=== PATIENT | male | born 2000 | race African-American/Black ===

== ENCOUNTER 2019-07-04 11:59 | Emergency (ER) | payer BC, OTHER ==
[~2019-07-04] VITALS: Ht 167.6 cm; Wt 65.0 kg
[~2019-07-04 11:59] MED LIST: ACET325T33 PO; AMOX500C2 PO; BEN25 PO; CEPH-443 PO; EPIN0.3P4 INJ; IBUP-1542 PO; IBUP800T48 PO; MED4DP PO; PRED20TA PO
[2019-07-04 12:01] VITALS: BP 134/71; PULSE 106; RESP 24; Ht 167.6 cm; Wt 65.0 kg
== END 2019-07-04 14:01 | disposition home or self-care (01) ==
LOC: FTE 11:59
DX: T63.441A Toxic effect of venom of bees, accidental (unintentional), initial encounter (principal); R50.9 Fever, unspecified; Y92.9 Unspecified place or not applicable
CPT/HCPCS: 83605; 85025; Z7502; Z7610; 99283

== ENCOUNTER 2019-07-05 15:28 | Emergency (ER) | payer OTHER ==
[~2019-07-05] VITALS: Ht 167.6 cm; Wt 65.0 kg
[2019-07-05 15:31] VITALS: BP 124/78; PULSE 84; RESP 18; Ht 167.6 cm; Wt 65.0 kg
--- NOTE | 2019-07-05 16:35 | ERD ---
ER Documentation Chief Complaint Chief Complaint ITCHING, PT SEEN HERE YESTERDAY WITH SAME HPI Patient is a 19-year-old male, no past medical history, who presents the ER for concerns of itching related to insect bites. Patient was seen here yesterday. Patient stated yesterday he was stung by numerous bees. Patient then developed a fever. Patient states he returns today with his father given that he has noticed more bites on his right wrist as well as on his right leg. Patient states that the lesions are itchy and he is looking for additional medications. Patient states yesterday he was only given ibuprofen, Tylenol and Benadryl. Patient denies receiving any steroids. Patient states he had a headache earlier today however that has not resolved. Patient denies any fevers. ROS All systems reviewed and are negative except as per history of present illness. Medications Home Meds Active Scripts Methylprednisolone* (Medrol* DOSE PACK) 4 Mg/Dose-Pack Tab.ds.pk, 4 MG PO . DIRECTED, #1 PACKET Prov:MEKA LYNNE PA-C 07/05/19 Epinephrine (Epipen 2-New) 0.3 Mg/0.3 Ml Pen.injctr, 1 EA INJ ONCE PRN for ALLERGIC REACTION, #1 EA Prov:MEKA LYNNE PA-C 07/05/19 Acetaminophen* (Tylenol*) 325 Mg Tablet, 2 TAB PO Q6 PRN for PAIN AND OR ELEVATED TEMP, #20 TAB Prov:ZEHRA LAMBERT PA-C 07/04/19 Ibuprofen* (Motrin*) 800 Mg Tab, 800 MG PO Q6, #30 TAB Prov:ZEHRA LAMBERT PA-C 07/04/19 Diphenhydramine Hcl* (Benadryl*) 25 Mg Cap, 25 MG PO Q6, #30 CAP Prov:ZEHRA LAMBERT PA-C 07/04/19 Methylprednisolone* (Medrol* DOSE PACK) 4 Mg/Dose-Pack Tab.ds.pk, 4 MG PO . DIRECTED, #1 PACKET Prov:ZEHRA LAMBERT PA-C 07/04/19 Cephalexin* (Keflex*) 500 Mg Capsule, 500 MG PO QID for 7 Days, CAP Prov:ZEHRA LAMBERT PA-C 07/04/19 Amoxicillin* (Amoxicillin*) 500 Mg Cap, 500 MG PO TID for 7 Days, CAP Prov:HETAL RODGERS MD 03/11/16 Ibuprofen* (Motrin*) 600 Mg Tab, 600 MG PO Q6H PRN for PAIN AND OR ELEVATED TEMP, #30 TAB Prov:HETAL RODGERS MD 03/11/16 Ibuprofen* (Motrin*) 600 Mg Tab, 600 MG PO BID, #30 TAB 0 Refills Prov:CLAUDIA SHIN PA-C 01/22/16 Discontinued Scripts Prednisone* (Prednisone*) 20 Mg Tab, 40 MG PO DAILY for 4 Days, TAB Prov:MEKA LYNNE PA-C 07/05/19 Allergies Allergies: Coded Allergies: No Known Allergy (Unverified , 07/05/19) PMhx/Soc Medical and Surgical Hx: pt denies Medical Hx, pt denies Surgical Hx Hx Alcohol Use: No Hx Substance Use: No Hx Tobacco Use: No Smoking Status: Never smoker FmHx Family History: No diabetes Physical Exam Vitals Vital Signs Date Temp Pulse Resp B/P (MAP) Pulse Ox O2 O2 Flow FiO2 Time Delivery Rate 07/05/19 99.8 84 18 124/78 98 15:31 (93) Physical Exam GENERAL: Well-developed, well-nourished male. Appears in no acute distress. Speaking in full sentences.. HEAD: Normocephalic, atraumatic. EYES: Pupils are equally reactive bilaterally. EOMs grossly intact. No conjunctival erythema. ENT: Moist mucous membranes. No uvula deviation. No kissing tonsils. No lip swelling. No tongue swelling. Oropharynx is open and patient is tolerating secretions well. NECK: Supple. No meningismus. Normal range of motion of the neck. LUNG: Clear to auscultation bilaterally. No rhonchi, wheezing, rales or coarse breath sounds. No stridor HEART: Regular rate and rhythm. No murmurs, rubs or gallops. EXTREMITIES: Equal pulses bilaterally. No peripheral clubbing, cyanosis or edema. No unilateral leg swelling. NEUROLOGIC: Alert and oriented. Moving all four extremities without any difficulty. Normal speech. Steady gait. SKIN: Erythematous raised lesions consistent with insect bites on patient's back and multiple different sizes. Lesions also noted on patient's right wrist and right lower leg. Negative Nikolsky sign. Procedures/MDM MEDICAL DECISION MAKING: This is a 19-year-old male presents ER for concerns of numerous insect bites on his body. Patient was seen here yesterday and states that he has been taking medication as prescribed however he continues to get new bites and he continues to have itching. Patient denied any lip swelling, x1, difficulty breathing, chest tightness. Patient no longer having any fevers. Vital signs were reviewed. Patient was afebrile. Patient is not diabetic. Patient is father concerned as patient is getting new bites. Patient denied any recent outdoor activity. The patient has 5 insect bites may be coming from the patient's house/his room. Father states that patient's room is dirty. I advised patient to clean his room as I do have concerns for bed bugs. Bedbug instructions were provided. Low suspicion for anaphylaxis. Patient also states he was not given a prescription for steroid pack yesterday contrary to chart review. Additional Medrol Dosepak will be written today however patient and father advised to review the prescription they were given yesterday and only fill this medication if he did not receive it. Low suspicion for necrotizing fasciitis, sepsis, gangrene, Louie-Zach syndrome, toxic epidural necrolysis, abscess, cellulitis, anaphylaxis. Patient was nontoxic, non-opening prior to discharge. PRESCRIPTIONS: Medrol dose pack, Epipen DISCHARGE: At this time, patient is stable for discharge and outpatient management. I have advised the patient to avoid any new products, creams or possible allergens. I have advised the patient to avoid scratching the lesions. I have instructed the patient to follow-up with his/her primary care physician in 1-2 days. If symptoms persist, patient may need to see a inspector rag sorting for further examina tions and testing. I have instructed the patient to promptly return to the ER at any time for any new or worsening symptoms including increased pain, fever, redness, swelling, warmth, difficulty breathing or vomiting. The patient and/or family expressed understanding of and agreement with this plan. All questions were answered. Home care instructions were provided. Disclaimer: Inadvertent spelling and grammatical errors are likely due to EHR/dictation software use and do not reflect on the overall quality of patient care. Also, please note that the electronic time recorded on this note does not necessarily reflect the actual time of the patient encounter. Departure Diagnosis: Primary Impression: Bug bites Encounter type: initial encounter Qualified Codes: W57.XXXA - Bitten or s tung by nonvenomous insect and other nonvenomous arthropods, initial encounter Additional Impression: Itching Condition: Fair Patient Instructions: Self-Care for Skin Rashes, Bedbug Bites Additional Instructions: Check to make sure you did not fill the prescription for the Medrol Dosepak ye sterday. If you did fill the Medrol Dosepak, do not take new Medrol Dosepak. Call your primary care doctor TOMORROW for an appointment during the next 1-2 days.See the doctor sooner or return here if your condition worsens before your appointment time. MEKA LNYNE PA-C Jul 05, 2019 16:35
== END 2019-07-05 16:39 | disposition home or self-care (01) ==
LOC: FTE 15:28
DX: S60.861A Insect bite (nonvenomous) of right wrist, initial encounter (principal); S80.861A Insect bite (nonvenomous), right lower leg, initial encounter; S20.469A Insect bite (nonvenomous) of unspecified back wall of thorax, initial encounter; L29.9 Pruritus, unspecified; W57.XXXA Bitten or stung by nonvenomous insect and other nonvenomous arthropods, initial encounter; Y92.9 Unspecified place or not applicable
CPT/HCPCS: 99283